=== PATIENT | female | born 1990 | race Caucasian/White ===

== ENCOUNTER 2018-02-13 11:22 | Emergency (ER) | payer OTHER ==
[2018-02-13 11:35] VITALS: BP 111/60
[2018-02-13] MEDS ORDERED: Tetan/Diph/Pertus SYR(Tdap)* 0.5 ML SYR(BOOSTRIX) use SYR IM ONE (12:00)
[2018-02-13] MEDS ORDERED: Ibuprofen TAB* 400 MG PO ONE (12:00)
--- NOTE | 2018-02-13 12:35 | RAD ---
HISTORY: TRAUMA, left great toe COMPARISONS: None VIEWS: 3, Frontal, lateral, and oblique views of the first digit of the left foot FINDINGS: BONE DENSITY: Normal. BONES: There is no displaced fracture. JOINTS: There is no arthropathy. ALIGNMENT: There is no dislocation. SOFT TISSUES: Unremarkable. OTHER FINDINGS: None. IMPRESSION: NO ACUTE OSSEOUS INJURY. IF SYMPTOMS PERSIST, RECOMMEND REPEAT IMAGING.
--- NOTE | 2018-02-13 12:43 | UC ---
Lower Extremity/Ankle HPI - HPI Summary HPI Summary: STUBBED LEFT GREAT TOE LAST NIGHT. NAIL WAS TORN OFF. PT PUSHED IT BACK DOWN. HAS A LOT OF PAIN. - History of Current Complaint Chief Complaint: UCLowerExtremity Stated Complaint: L BIG TOE INJURY Time Seen by Provider: 02/13/18 11:50 Hx Obtained From: Patient Hx Last Menstrual Period: 02/13/18 Onset/Duration: Sudden Onset, Lasting Hours, Still Present Severity Initially: Moderate Severity Currently: Moderate Pain Intensity: 8 Pain Scale Used: 0-10 Numeric Aggravating Factor(s): Standing, Ambulation Alleviating Factor(s): Nothing Able to Bear Weight: Yes - WITH PAIN - Allergies/Home Medications Allergies/Adverse Reactions: Allergies Allergy/AdvReac Type Severity Reaction Status Date / Time No Known Allergies Allergy Verified 02/13/18 11:35 PMH/Surg Hx/FS Hx/Imm Hx Previously Healthy: Yes - Surgical History Surgical History: None - Family History Known Family History: Negative: Hypertension - Social History Alcohol Use: Occasionally Substance Use Type: None Smoking Status (MU): Never Smoked Tobacco - Immunization History Most Recent Influenza Vaccination: none Most Recent Tetanus Shot: none-refuses Most Recent Pneumonia Vaccination: na Review of Systems Constitutional: Negative Skin: Other - LEFT GREAT TOE NAIL AVULSION Respiratory: Negative Cardiovascular: Negative Gastrointestinal: Negative All Other Systems Reviewed And Are Negative: Yes Physical Exam Triage Information Reviewed: Yes Appearance: Well-Appearing, No Pain Distress, Well-Nourished Vital Signs: Initial Vital Signs Temp 99.7 F 02/13/18 11:31 Pulse 97 02/13/18 11:31 Resp 18 02/13/18 11:31 BP 111/60 02/13/18 11:31 Pulse Ox 100 02/13/18 11:31 Vital Signs Reviewed: Yes Eyes: Positive: Conjunctiva Clear ENT: Positive: Hearing grossly normal Neck: Positive: Supple Respiratory: Positive: No respiratory distress, No accessory muscle use Cardiovascular: Positive: Pulses Normal Abdomen Description: Positive: Soft Musculoskeletal: Positive: No Edema Neurological: Positive: Alert Psychological: Positive: Age Appropriate Behavior Skin: Positive: Other - LEFT GREAT TO NAIL AVULSED. MATRIX EXPOSED MEDIALLY Lower Extremity Course/Dx - Course Course Of Treatment: CALLED [facility] AND SCHEDULED PT FOR AN APPT AT 1PM FOR FURTHER TREATMENT OF AVULSED TOE NAIL. TDAP BOOSTED. PROPHYLACTIC ANTIBIOTICS. XRAY UNREMARKABLE - Differential Dx/Diagnosis Provider Diagnoses: 1. LEFT GREAT TOE NAIL AVULSION. 2. TDAP BOOSTER Discharge - Sign-Out/Discharge Documenting (check all that apply): Patient Departure - Discharge Plan Condition: Stable Disposition: HOME Prescriptions: Acetaminop/Codeine 30 MG TAB* [Tylenol/Codeine 30 MG TAB*] 1 - 2 tab PO Q6H PRN #20 tab MDD 8 PRN Reason: Pain Cephalexin CAP* [Keflex 500 CAP*] 1,000 mg PO BID #20 cap Ibuprofen TAB* [Motrin TAB* 800 MG] 800 mg PO Q8H PRN #30 tab PRN Reason: Pain Patient Education Materials: Nail Avulsion (ED) Referrals: No Primary Care Phys,NOPCP [Primary Care Provider] - Additional Instructions: NO FRACTURE ON XRAY TODAY. GO DIRECTLY TO THE [facility] OFFICE. YOU HAVE AN APPT AT 1PM. Dr. Ubaldo Jones. [address] [place] [address] TAKE THE ANTIBIOTIC DAILY FOR 5 DAYS TO PREVENT INFECTION. IBUPROFEN AND/OR TYLENOL#3 TO HELP WITH DISCOMFORT. KEEP OUT OF REACH OF CHILDREN. TETANUS IMMUNIZATION GIVEN (TDAP): You have been given an immunization against tetanus. Please record this in your records. In general, a booster is needed only once every 10 years. The tetanus shot protects against tetanus or "lockjaw," which is a complication of certain wound infections (the tetanus shot cannot protect against the actual infection). The immunization site may become warm and red due to local reaction. If this occurs, apply warm compresses and take aspirin or ibuprofen to reduce inflammation and discomfort. Return for evaluation if the reaction becomes severe. CALL THE NUMBER BELOW FOR ASSISTANCE IN ESTABLISHING WITH A PCP An additional resource available to assist in finding the appropriate physician for your health care needs is [facility] ([facility]). You may contact them by calling [phone]. - Billing Disposition and Condition Condition: STABLE Disposition: Home
== END 2018-02-13 12:47 | disposition home or self-care (01) ==
LOC: UCEAST 11:22
DX: S91.202A Unspecified open wound of left great toe with damage to nail, initial encounter (principal); Z23 Encounter for immunization; W22.8XXA Striking against or struck by other objects, initial encounter; Y92.9 Unspecified place or not applicable
CPT/HCPCS: 90471; 90715; 99202; A9270-GY; G0463